=== PATIENT | male | born 1945 | race Caucasian/White ===

== ENCOUNTER 2017-10-20 14:09 | Inpatient (IN) | payer MEDICARE ==
[~2017-10-20] VITALS: Ht 185.4 cm; Wt 151.3 kg
[2017-10-20 15:15] LABS: Basophils # (auto) 0.2 uL; Basophils % (auto) 0.9 % (0.0-2.0); Eosinophils # (auto) 0.3 uL; Eosinophils % (auto) 1.5 % (0.0-7.0); Hematocrit 42.3 % (41.0-53.0); Hemoglobin 14.1 g/dL (13.5-17.5); Lymphocytes # (auto) 1.4 uL; Lymphocytes % (auto) 7.7 % (10.0-50.0); Mean Corpuscular Hemoglobin 32.3 pg (28.0-32.0); Mean Corpuscular Hgb Conc. 33.3 g/dL (32.0-36.0); Mean Corpuscular Volume 96.9 fL (80.0-100.0); Monocytes # (auto) 0.9 uL; Monocytes % (auto) 4.8 % (0.0-12.0); Neutrophils # (auto) 15.6 uL; Neutrophils % (auto) 85.1 % (37.0-80.0); Platelet Count (auto) 333 10^3/uL (140-450); Red Blood Cells 4.37 10^6/uL (4.5-5.90); Red Cell Distribution Width 12.7 % (11.8-14.3); White Blood Cell 18.3 10^3/uL (4.4-10.8)
[2017-10-20 15:18] LABS: Albumin 3.8 g/dL (3.4-5.0); Anion Gap 9 (5-15); Aspartate Aminotransferase 11 U/L (15-37); BUN/Creatinine Ratio 29.7; Blood Urea Nitrogen 27 mg/dL (7-18); Calcium 8.6 mg/dL (8.5-10.1); Carbon Dioxide 25 mmol/L (21-32); Chloride 107 mmol/L (98-107); GFR African American 105 mL/min; GFR Non-African American 87 mL/min; Glucose 131 mg/dL (74-106); Magnesium 2.2 mg/dL (1.6-2.6); Potassium 3.9 mmol/L (3.5-5.1); Sodium 141 mmol/L (136-145)
[2017-10-20 15:29] LABS: Alanine Aminotransferase 19 U/L (16-61); Alkaline Phosphatase 66 U/L (45-117); Bilirubin, Total 0.4 mg/dL (0.2-1.0); Total Protein 6.8 g/dL (6.4-8.2)
[2017-10-20] MEDS ORDERED: SODIUM CHLORIDE 0.9% 1,000 ML IV ONE (16:00)
[2017-10-20 16:29] LABS: Urine Bacteria NONE SEEN /hpf (None Seen); Urine Blood Negative /uL (Negative); Urine Mucus FEW (None Seen); Urine Specific Gravity 1.022 (1.001-1.035); Urine WBC 1 /hpf (0 - 3)
[2017-10-20 16:43] LABS: Lactic Acid w/Reflex 2.8 mmol/L (0.4-2.0)
[2017-10-20 17:01] LABS: INR 0.95 (0.9-1.15); Partial Thromboplastin Time 27.5 sec (22.64-33.71); Prothrombin Time 10.4 sec (9.37-12.3)
[2017-10-20] MEDS ORDERED: ACETAMINOPHEN 500 MG TAB PO ONE ×2 (17:01→17:15)
[2017-10-20] MEDS ORDERED: FUROSEMIDE 40 MG/4 ML VIAL IV ONE (17:15)
[2017-10-20] MEDS ORDERED: PIPERACILLIN-TAZO 4.5GM 100 ML IV ONE (17:15)
[2017-10-20] MEDS ORDERED: METH-532 PO (17:19)
[2017-10-20] MEDS ORDERED: OXYB5SYP4 PO (17:19)
[2017-10-20] MEDS ORDERED: TAMS0.4C36 PO (17:19)
[2017-10-20] MEDS ORDERED: DOCU250C3 PO (17:19)
[2017-10-20] MEDS ORDERED: IBUP800T24 PO (17:19)
[2017-10-20] MEDS ORDERED: PROMETHAZINE HCL 25 MG/ML 1ML IV PRN (18:45)
[2017-10-20] MEDS ORDERED: MORPHINE SULFATE 8mg/ml INJ SDV IV PRN (18:45)
[2017-10-20] MEDS ORDERED: ACETAMINOPHEN 500 MG TAB PO PRN (18:45)
[2017-10-20] MEDS ORDERED: ALBUTEROL SULF 2.5 MG/0.5ML(0.5%) NEB SOLN NEB PRN (18:45)
[2017-10-20] MEDS ORDERED: LORazepam 0.5 MG TAB PO PRN (18:45)
[2017-10-20] MEDS ORDERED: NITROGLYCERIN 0.4 MG SL TAB SL PRN (18:45)
[2017-10-20] MEDS ORDERED: cefTRIAXone 1GM/10ml IVPUSH 10 ML IV SCH (18:47)
[2017-10-20] MEDS: DOCUSATE ORAL LIQUID 100 MG/10 ML UD PO SCH (19:30)
[2017-10-20] MEDS: SODIUM CHLORIDE 0.9% 1,000 ML IV SCH (19:30)
[2017-10-20] MEDS ORDERED: ENOXAPARIN SOD 40 MG/0.4 ML SYRINGE SC ONE (19:45)
[2017-10-20 19:47] LABS: Folate (Folic Acid) 21.75 ng/mL (5.38-24)
[2017-10-20 19:48] LABS: Alcohol, Urine < 3.0 mg/dL (0-5); Amphetamine Screen, Urine NEGATIVE (NEGATIVE); Barbiturate Scree,Urine NEGATIVE (NEGATIVE); Benzodiazephine Screen, Urine NEGATIVE (NEGATIVE); Cannabinoid Screen, Urine NEGATIVE (NEGATIVE); Cocaine Screen, Urine NEGATIVE (NEGATIVE); Opiate Scree,Urine POSITIVE (NEGATIVE); Phencyclidine Screen, Urine NEGATIVE (NEGATIVE)
[2017-10-20] MEDS ORDERED: ENOXAPARIN SOD 120 MG/0.8 ML SYRINGE SC SCH (20:00)
[2017-10-20] MEDS: AZITHROMYCIN 500MG/ 250ML 250 ML IV SCH (20:30)
[2017-10-20] MEDS ORDERED: HALOPERIDOL LACTATE 5 MG/ML INJ VIAL IV PRN (20:30)
[2017-10-20] MEDS: TEMAZEPAM 15 MG CAP PO PRN (22:24)
[2017-10-20] MEDS: HYDROcodone-ACET 5/325MG TAB PO PRN (22:24)
[2017-10-20] MEDS: ATORVASTATIN 20 MG TAB PO SCH (22:24)
[2017-10-20] MEDS: TAMSULOSIN HYDROCHLORIDE 0.4 MG CAP PO SCH (22:25)
[2017-10-21 02:12] VITALS: BP 160/88
[2017-10-21] MEDS: SODIUM CHLORIDE 0.9% 1,000 ML IV SCH (04:44)
[2017-10-21 05:23] LABS: Basophils # (auto) 0.1 uL; Basophils % (auto) 0.3 % (0.0-2.0); Eosinophils # (auto) 0 uL; Hematocrit 37.5 % (41.0-53.0); Hemoglobin 12.5 g/dL (13.5-17.5); Lymphocytes # (auto) 1.3 uL; Lymphocytes % (auto) 5.5 % (10.0-50.0); Mean Corpuscular Hemoglobin 32.7 pg (28.0-32.0); Mean Corpuscular Hgb Conc. 33.4 g/dL (32.0-36.0); Monocytes # (auto) 0.5 uL; Monocytes % (auto) 2.1 % (0.0-12.0); Neutrophils # (auto) 21.9 uL; Neutrophils % (auto) 92.1 % (37.0-80.0); Nucleated Red Blood Cells % 0.1 %; Platelet Count (auto) 247 10^3/uL (140-450); Red Blood Cells 3.82 10^6/uL (4.5-5.90); Red Cell Distribution Width 13.2 % (11.8-14.3); White Blood Cell 23.7 10^3/uL (4.4-10.8)
[2017-10-21] MEDS: PIPERACILLIN-TAZOB 3.375GM 100 ML IV SCH ×3 (05:46→18:08)
[2017-10-21 05:54] LABS: BUN/Creatinine Ratio 22.1; Bilirubin, Total 0.5 mg/dL (0.2-1.0); Potassium 3.5 mmol/L (3.5-5.1); Total Protein 5.8 g/dL (6.4-8.2)
[2017-10-21] MEDS: ALBUTEROL SULF 2.5 MG/0.5ML(0.5%) NEB SOLN NEB SCH ×4 (06:00→18:57)
[2017-10-21] MEDS: ASPirin 81 mg TAB PO SCH (09:22)
[2017-10-21] MEDS: ENOXAPARIN SOD 40 MG/0.4 ML SYRINGE SC SCH (09:22)
[2017-10-21] MEDS: PANTOPRAZOLE 40 MG TAB PO SCH (09:22)
[2017-10-21] MEDS: DOCUSATE ORAL LIQUID 100 MG/10 ML UD PO SCH (09:22)
[2017-10-21] MEDS: AZITHROMYCIN 500MG/ 250ML 250 ML IV SCH (09:26)
[2017-10-21] MEDS ORDERED: ACETAMINOPHEN 500 MG TAB PO ONE (13:15)
[2017-10-21 13:25] VITALS: BP 159/86
[2017-10-21 13:30] VITALS: BP 159/86
[2017-10-21] MEDS ORDERED: IOHEXOL 350 MG/ML 100ML IJ ONE (15:14)
[2017-10-21 15:50] VITALS: BP 151/71
[2017-10-21] MEDS: MORPHINE SULFATE 8mg/ml INJ SDV IV PRN (16:29)
[2017-10-21 20:00] VITALS: BP 117/65
[2017-10-21] MEDS: DOCUSATE SOD 100 MG CAP PO SCH (22:12)
[2017-10-21] MEDS: TEMAZEPAM 15 MG CAP PO PRN (22:12)
[2017-10-21] MEDS: ATORVASTATIN 20 MG TAB PO SCH (22:12)
[2017-10-21] MEDS: TAMSULOSIN HYDROCHLORIDE 0.4 MG CAP PO SCH (22:12)
[2017-10-21] MEDS: HYDROcodone-ACET 5/325MG TAB PO PRN (22:20)
[2017-10-21] MEDS ORDERED: AMLO5TAB2 PO (22:28)
[2017-10-21] MEDS ORDERED: HYDR-4683 PO (22:29)
[2017-10-22] VITALS: BP 129/85
[2017-10-22] MEDS: PIPERACILLIN-TAZOB 3.375GM 100 ML IV SCH ×4 (00:53→19:20)
[2017-10-22] MEDS: SODIUM CHLORIDE 0.9% 1,000 ML IV SCH ×3 (00:54→12:00)
[2017-10-22 04:00] VITALS: BP 143/77
[2017-10-22 05:25] LABS: Basophils # (auto) 0.1 uL; Basophils % (auto) 0.6 % (0.0-2.0); Eosinophils # (auto) 0.1 uL; Eosinophils % (auto) 0.8 % (0.0-7.0); Hematocrit 36.4 % (41.0-53.0); Hemoglobin 12.5 g/dL (13.5-17.5); Lymphocytes # (auto) 2.3 uL; Lymphocytes % (auto) 17.1 % (10.0-50.0); Mean Corpuscular Hemoglobin 33.4 pg (28.0-32.0); Mean Corpuscular Hgb Conc. 34.4 g/dL (32.0-36.0); Monocytes # (auto) 0.9 uL; Monocytes % (auto) 6.7 % (0.0-12.0); Neutrophils % (auto) 74.8 % (37.0-80.0); Nucleated Red Blood Cells % 0.1 %; Platelet Count (auto) 222 10^3/uL (140-450); Red Blood Cells 3.75 10^6/uL (4.5-5.90); Red Cell Distribution Width 12.7 % (11.8-14.3); White Blood Cell 13.4 10^3/uL (4.4-10.8)
[2017-10-22 05:28] LABS: Albumin 2.7 g/dL (3.4-5.0); Calcium 8.2 mg/dL (8.5-10.1); Magnesium 2.3 mg/dL (1.6-2.6); Potassium 3.5 mmol/L (3.5-5.1)
[2017-10-22 05:34] LABS: Bilirubin, Total 0.4 mg/dL (0.2-1.0); Total Protein 5.4 g/dL (6.4-8.2)
[2017-10-22 08:00] VITALS: BP 136/55
[2017-10-22] MEDS: ALBUTEROL SULF 2.5 MG/0.5ML(0.5%) NEB SOLN NEB SCH ×5 (08:41→23:40)
[2017-10-22] MEDS: ASPirin 81 mg TAB PO SCH (09:42)
[2017-10-22] MEDS: DOCUSATE SOD 100 MG CAP PO SCH ×2 (09:42→21:15)
[2017-10-22] MEDS: PANTOPRAZOLE 40 MG TAB PO SCH (09:43)
[2017-10-22] MEDS: ENOXAPARIN SOD 40 MG/0.4 ML SYRINGE SC SCH (09:43)
[2017-10-22] MEDS: AZITHROMYCIN 500MG/ 250ML 250 ML IV SCH (09:45)
[2017-10-22] MEDS: CYANOCOBALAMIN (B-12) 1000 MCG/1 ML VIAL IM SCH (09:52)
[2017-10-22 12:13] VITALS: BP 127/62
[2017-10-22 16:00] VITALS: BP 131/70
[2017-10-22 20:00] VITALS: BP 132/57
[2017-10-22] MEDS: TAMSULOSIN HYDROCHLORIDE 0.4 MG CAP PO SCH (21:15)
[2017-10-22] MEDS: ATORVASTATIN 20 MG TAB PO SCH (21:16)
[2017-10-22] MEDS: MORPHINE SULFATE 8mg/ml INJ SDV IV PRN (21:25)
[2017-10-23] VITALS (7 sets, daily range): BP systolic 114–151; BP diastolic 54–76
[2017-10-23] MEDS: PIPERACILLIN-TAZOB 3.375GM 100 ML IV SCH ×4 (00:01→17:55)
[2017-10-23] MEDS: HYDROcodone-ACET 5/325MG TAB PO PRN ×3 (02:04→18:12)
[2017-10-23] MEDS: SODIUM CHLORIDE 0.9% 1,000 ML IV SCH (02:18)
[2017-10-23] MEDS: MORPHINE SULFATE 8mg/ml INJ SDV IV PRN (05:30)
[2017-10-23 06:51] LABS: Basophils # (auto) 0.1 uL; Basophils % (auto) 1.3 % (0.0-2.0); Eosinophils # (auto) 0.3 uL; Eosinophils % (auto) 3.3 % (0.0-7.0); Hematocrit 35.7 % (41.0-53.0); Hemoglobin 12.3 g/dL (13.5-17.5); Lymphocytes # (auto) 2.7 uL; Lymphocytes % (auto) 29.5 % (10.0-50.0); Mean Corpuscular Hemoglobin 33.1 pg (28.0-32.0); Mean Corpuscular Hgb Conc. 34.4 g/dL (32.0-36.0); Mean Corpuscular Volume 96.2 fL (80.0-100.0); Monocytes # (auto) 0.8 uL; Monocytes % (auto) 8.4 % (0.0-12.0); Neutrophils # (auto) 5.2 uL; Neutrophils % (auto) 57.5 % (37.0-80.0); Nucleated Red Blood Cells % 0.1 %; Platelet Count (auto) 233 10^3/uL (140-450); Red Blood Cells 3.71 10^6/uL (4.5-5.90); Red Cell Distribution Width 12.8 % (11.8-14.3)
[2017-10-23 07:03] LABS: Calcium 8.1 mg/dL (8.5-10.1); Potassium 3.7 mmol/L (3.5-5.1)
[2017-10-23 07:05] LABS: BUN/Creatinine Ratio 22.1
[2017-10-23] MEDS: ALBUTEROL SULF 2.5 MG/0.5ML(0.5%) NEB SOLN NEB SCH ×3 (07:16→19:46)
[2017-10-23] MEDS: AZITHROMYCIN 500MG/ 250ML 250 ML IV SCH (09:45)
[2017-10-23] MEDS: ENOXAPARIN SOD 40 MG/0.4 ML SYRINGE SC SCH (09:46)
[2017-10-23] MEDS: CYANOCOBALAMIN (B-12) 1000 MCG/1 ML VIAL IM SCH (09:46)
[2017-10-23] MEDS: PANTOPRAZOLE 40 MG TAB PO SCH (09:46)
[2017-10-23] MEDS: ASPirin 81 mg TAB PO SCH (09:46)
[2017-10-23] MEDS: DOCUSATE SOD 100 MG CAP PO SCH ×2 (09:50→22:00)
[2017-10-23] MEDS: TAMSULOSIN HYDROCHLORIDE 0.4 MG CAP PO SCH (22:13)
[2017-10-23] MEDS: ATORVASTATIN 20 MG TAB PO SCH (22:13)
[2017-10-24] MEDS: PIPERACILLIN-TAZOB 3.375GM 100 ML IV SCH ×5 (00:18→23:56)
[2017-10-24] MEDS: HYDROcodone-ACET 5/325MG TAB PO PRN ×2 (00:44→17:00)
[2017-10-24 06:03] VITALS: BP 144/57
[2017-10-24 06:05] LABS: Basophils # (auto) 0.1 uL; Basophils % (auto) 1.2 % (0.0-2.0); Eosinophils # (auto) 0.5 uL; Eosinophils % (auto) 6.2 % (0.0-7.0); Hematocrit 36.6 % (41.0-53.0); Hemoglobin 12.4 g/dL (13.5-17.5); Lymphocytes # (auto) 2.5 uL; Lymphocytes % (auto) 31.1 % (10.0-50.0); Mean Corpuscular Hemoglobin 32.6 pg (28.0-32.0); Mean Corpuscular Volume 95.9 fL (80.0-100.0); Monocytes # (auto) 0.6 uL; Monocytes % (auto) 8.2 % (0.0-12.0); Neutrophils # (auto) 4.2 uL; Neutrophils % (auto) 53.3 % (37.0-80.0); Nucleated Red Blood Cells % 0.1 %; Platelet Count (auto) 254 10^3/uL (140-450); Red Blood Cells 3.81 10^6/uL (4.5-5.90); Red Cell Distribution Width 12.8 % (11.8-14.3); White Blood Cell 7.9 10^3/uL (4.4-10.8)
[2017-10-24 06:21] LABS: Albumin 2.7 g/dL (3.4-5.0); BUN/Creatinine Ratio 24.4; Potassium 3.7 mmol/L (3.5-5.1)
[2017-10-24 06:23] LABS: Bilirubin, Total 0.3 mg/dL (0.2-1.0); Total Protein 5.7 g/dL (6.4-8.2)
[2017-10-24] MEDS: ALBUTEROL SULF 2.5 MG/0.5ML(0.5%) NEB SOLN NEB SCH ×4 (06:44→18:00)
[2017-10-24 09:00] VITALS: BP 131/55
[2017-10-24] MEDS: DOCUSATE SOD 100 MG CAP PO SCH ×2 (10:10→21:27)
[2017-10-24] MEDS: ENOXAPARIN SOD 40 MG/0.4 ML SYRINGE SC SCH (10:10)
[2017-10-24] MEDS: ASPirin 81 mg TAB PO SCH (10:10)
[2017-10-24] MEDS: PANTOPRAZOLE 40 MG TAB PO SCH (10:10)
[2017-10-24] MEDS: AZITHROMYCIN 500MG/ 250ML 250 ML IV SCH (10:11)
[2017-10-24] MEDS: CYANOCOBALAMIN (B-12) 1000 MCG/1 ML VIAL IM SCH (10:11)
[2017-10-24 13:00] VITALS: BP 111/60
[2017-10-24 17:00] VITALS: BP 149/68
[2017-10-24] MEDS: MORPHINE SULFATE 8mg/ml INJ SDV IV PRN (21:26)
[2017-10-24] MEDS: ATORVASTATIN 20 MG TAB PO SCH (21:26)
[2017-10-24] MEDS: TAMSULOSIN HYDROCHLORIDE 0.4 MG CAP PO SCH (21:27)
[2017-10-24 22:00] VITALS: BP 140/81
[2017-10-25] MEDS: ALBUTEROL SULF 2.5 MG/0.5ML(0.5%) NEB SOLN NEB SCH ×3 (00:23→12:00)
[2017-10-25] MEDS: HYDROcodone-ACET 5/325MG TAB PO PRN ×2 (01:07→06:55)
[2017-10-25 05:00] VITALS: BP 133/59
[2017-10-25] MEDS: PIPERACILLIN-TAZOB 3.375GM 100 ML IV SCH (05:42)
[2017-10-25 09:43] VITALS: BP 148/85
[2017-10-25] MEDS: ASPirin 81 mg TAB PO SCH (09:44)
[2017-10-25] MEDS: DOCUSATE SOD 100 MG CAP PO SCH (09:52)
[2017-10-25] MEDS: CYANOCOBALAMIN (B-12) 1000 MCG/1 ML VIAL IM SCH (09:52)
[2017-10-25] MEDS: ENOXAPARIN SOD 40 MG/0.4 ML SYRINGE SC SCH (09:52)
[2017-10-25] MEDS: PANTOPRAZOLE 40 MG TAB PO SCH (09:52)
[2017-10-25] MEDS ORDERED: LEVOFLOXACIN 750MG 150 ML IV SCH (10:00)
[2017-10-25 11:58] VITALS: BP 167/68
[2017-10-25] MEDS ORDERED: SACC250C PO (12:22)
[2017-10-25] MEDS ORDERED: PANT40TA2 PO (12:22)
[2017-10-25] MEDS ORDERED: ATOR10TA PO (12:22)
[2017-10-25] MEDS ORDERED: LEVO750T2 PO (12:22)
[2017-10-25] MEDS ORDERED: ASPI-378 PO (12:22)
[2017-10-25] MEDS ORDERED: amLODIPine BESYLATE 5 MG TAB PO ONE (12:30)
[2017-10-25 13:51] VITALS: BP 167/68
== END 2017-10-25 16:02 | disposition home or self-care (01) | DRG 871 ==
LOC: ER 14:09 → TELE 14:10 → DOU IN ICU 10-21 13:18 → TELE-WESTW 10-23 20:20
PROVIDERS: ADMIT Internal Medicine; ATTEND Internal Medicine
DX: A41.9 Sepsis, unspecified organism (principal); G93.41 Metabolic encephalopathy; N17.0 Acute kidney failure with tubular necrosis; J18.9 Pneumonia, unspecified organism; N39.0 Urinary tract infection, site not specified; I48.91 Unspecified atrial fibrillation; I11.9 Hypertensive heart disease without heart failure; G45.9 Transient cerebral ischemic attack, unspecified; Z68.41 Body mass index [BMI] 40.0-44.9, adult; E66.01 Morbid (severe) obesity due to excess calories; E78.5 Hyperlipidemia, unspecified; F41.9 Anxiety disorder, unspecified; E53.8 Deficiency of other specified B group vitamins; K40.90 Unilateral inguinal hernia, without obstruction or gangrene, not specified as recurrent; M54.5 Low back pain; A49.01 Methicillin susceptible Staphylococcus aureus infection, unspecified site; K59.00 Constipation, unspecified; K57.30 Diverticulosis of large intestine without perforation or abscess without bleeding; N40.0 Benign prostatic hyperplasia without lower urinary tract symptoms; Z79.82 Long term (current) use of aspirin; Z79.899 Other long term (current) drug therapy; Z80.0 Family history of malignant neoplasm of digestive organs; Z87.442 Personal history of urinary calculi
CPT/HCPCS: 36415; 51702; 70450; 71045; 72132; 74177; 76705; 80048; 80053; 80061; 80307; 81001; 82550; 82607; 82746; 82962; 83605; 83615; 83735; 83880; 84443; 84484; 85025; 85379; 85610; 85652; 85730; 87040; 87070; 87077; 87081; 87086; 87186; 87205; 93005; 93306; 93886; 94640; 94761; 95819; 96372; 96374; 96375; J1956; J2270; J2543

== ENCOUNTER → 2024-03-27 | Outpatient (CLI) | payer MEDICARE ==
[~2024-03-27] MED LIST: AMLO1TAB22 PO; ASPI-378 PO; DOCU250C12 PO; HYDR-4833 PO; IBUP-1456 PO; LEVO750T8 PO; METH-532 PO; OXYB5SYP4 PO; PANT40TA2 PO; SACC250C PO; TAMS0.4C39 PO
[2024-03-27 08:25] LABS: Basophils # (auto) 0 10 ^3/uL (0-0.2); Eosinophils # (auto) 0 10 ^3/uL (0-0.8); Lymphocytes # (auto) 0.7 10 ^3/uL (0.4-5.4); Monocytes # (auto) 0.3 10 ^3/uL (0-1.3)
[2024-03-27 08:30] LABS: Basophils % (auto) 0.2 % (0.0-2.0); Hematocrit 39.6 % (41.0-53.0); Hemoglobin 13.5 g/dL (13.5-17.5); Lymphocytes % (auto) 7.9 % (10.0-50.0); Mean Corpuscular Hemoglobin 34.8 pg (28.0-32.0); Mean Corpuscular Volume 102.2 fL (80.0-100.0); Monocytes % (auto) 3.5 % (0.0-12.0); Neutrophils # (auto) 7.3 10 ^3/uL (1.6-8.6); Neutrophils % (auto) 88.4 % (37.0-80.0); Nucleated Red Blood Cells % 0.1 %; Platelet Count (auto) 251 10^3/uL (140-450); Red Blood Cells 3.87 10^6/uL (4.5-5.90); White Blood Cell 8.3 10^3/uL (4.4-10.8)
[2024-03-27 09:06] LABS: Alanine Aminotransferase 16 U/L (7-40); Albumin 3.6 g/dL (3.2-4.8); Alkaline Phosphatase 87 U/L (46-116); Anion Gap 10 (5-15); Aspartate Aminotransferase 9 U/L (13-40); BUN/Creatinine Ratio 20.8 (10.0-20.0); Blood Urea Nitrogen 20 mg/dL (9-23); Calcium 9.4 mg/dL (8.7-10.4); Carbon Dioxide 23 mmol/L (20-31); Chloride 106 mmol/L (98-107); Glucose 214 mg/dL (74-106); Potassium 4.4 mmol/L (3.5-5.1); Sodium 139 mmol/L (136-145)
[2024-03-27 09:07] LABS: Bilirubin, Total 0.8 mg/dL (0.2-1.0); Total Protein 5.4 g/dL (5.7-8.2)
[2024-03-28 09:07] LABS: Kappa Lite Chain Free Serum 33.6 mg/L (3.3-19.4)
== END | disposition home or self-care (01) ==
LOC: LAB 07:27
DX: C90.00 Multiple myeloma not having achieved remission (principal)
CPT/HCPCS: 36415; 80053; 82784; 83521; 85025